=== PATIENT | female | born 1945 | race African-American/Black ===

== ENCOUNTER 2018-04-01 11:44 | Emergency (ER) | payer OTHER ==
[2018-04-01 12:45] LABS: #Eosinphils 0.1 thou/uL (0.0-0.7); #Lymphocytes 1.9 thou/uL (1.20-3.40); #Monocytes 0.6 thou/uL (0.11-0.59); #Neutrophils 3.5 thou/uL (1.40-6.50); %Basophils 0.4 % (0.0-1.0); %Eosinophils 0.9 % (0.0-10.0); %Lymphocytes 31.1 % (21.0-51.0); %Monocytes 9.6 % (0.0-10.0); %Neutrophils 58.1 % (42.0-75.0); Hemoglobin 13.5 g/dL (12.0-16.0); Mean Corpuscular HGB CONC 32.8 g/dL (32.0-36.0); Mean Corpuscular Hemoglobin 30.1 pg (27.0-31.0); Mean Corpuscular Volume 91.8 fl (81.0-99.0); Mean Platelet Volume 6.4 fL (7.4-10.4); Platelet Count 301 thou/uL (130-400); RBC Distribution Width 12.9 % (11.5-14.5); Red Blood Cell (RBC) Count 4.48 mill/uL (4.20-5.40)
[2018-04-01 13:08] LABS: ALT (SGPT) 11 U/L (8-55); AST (SGOT) 22 U/L (5-34); Albumin 4.3 g/dL (3.4-4.8); Alkaline Phosphatase 69 U/L (40-150); Anion Gap 12 mmol/L (10-20); BUN (Urea Nitrogen) 9 mg/dL (9.8-20.1); Bilirubin, Total 0.3 mg/dL (0.2-1.2); CK (CPK) 140 U/L (29-168); Calc. Creatinine Clearance 0 mL/min (70-130); Calcium 9.3 mg/dL (7.8-10.44); Carbon Dioxide 26 mmol/L (23-31); Chloride 105 mmol/L (98-107); Estimated GFR-MDRD Greater than 90; Globulin 3.5 g/dL (2.4-3.5); Glucose 94 mg/dL (83-110); Potassium 3.7 mmol/L (3.5-5.1); Protein, Total 7.8 g/dL (6.0-8.3); Sodium 139 mmol/L (136-145)
[2018-04-01 13:10] LABS: CKMB 0.9 ng/mL (0-6.6); Troponin I Less than 0.010 ng/mL (< 0.028)
--- NOTE | 2018-04-01 14:11 | RAD ---
CHEST 1 VIEW: HISTORY: Syncope. Dyspnea. FINDINGS: Cardiac silhouette is unremarkable. Shallow inspiration accentuates pulmonary markings, upper limits of normal. Mediastinum is midline. No lobar consolidation or evidence of pneumothorax. IMPRESSION: Borderline pulmonary vascular congestion. POS: [facility]
--- NOTE | 2018-04-01 14:17 | CT ---
NONCONTRAST CT HEAD: Date: 04-01-18 History: Patient fell on head after feeling whoozy earlier this morning. Bleeding from scalp. Comparison: None available. FINDINGS: There is left frontal subcutaneous soft tissue swelling. Underlying calvarial structures demonstrate no evidence of a fracture. There is also a suggestion of subcutaneous soft tissue swelling, infraorbi shell regions bilaterally. There is decreased attenuation in the periventricular and subcortical white matter which is nonspecif ic but likely reflective of chronic small vessel ischemic changes. No intraparenchymal or extraaxial hemorrhage is seen. The ventricular system is normal in size, shape, and position. There is minimal mucosal thickening in a few ethmoid air cells. Mastoid air cells are clear. IMPRESSION: 1. No acute intracranial abnormalities demonstrated. 2. Chronic small vessel ischemic changes. 3. Left frontal scalp hematoma with infraorbital subcutaneous soft tissue swelling bilaterally. The o rbits are symmetric and normal in appearance. POS: [facility]
--- NOTE | 2018-04-01 14:20 | CT ---
CT CERVICAL SPINE WITHOUT CONTRAST WITH SAGITTAL AND CORONAL REFORMATIONS: History: Fall, injury, neck pain. FINDINGS/IMPRESSION: There are no previous exams for comparison. There is loss of the cervical lordosis with straightening of the cervical spine. Degenerative changes are present. No acute fracture or subluxation is identified. POS: [facility]
== END 2018-04-01 14:56 | disposition home or self-care (01) ==
LOC: ERS 11:44
DX: S09.90XA Unspecified injury of head, initial encounter (principal); S01.81XA Laceration without foreign body of other part of head, initial encounter; E78.5 Hyperlipidemia, unspecified; I10 Essential (primary) hypertension; F32.9 Major depressive disorder, single episode, unspecified; W19.XXXA Unspecified fall, initial encounter
CPT/HCPCS: 36415; 70450; 71045; 72125; 80053; 82550; 82553; 84484; 85025; 93005; 94760

== ENCOUNTER 2019-05-30 09:34 | Emergency (ER) | payer OTHER ==
[2019-05-30 11:12] LABS: #Lymphocytes 1.1 thou/uL (1.20-3.40); #Monocytes 0.4 thou/uL (0.11-0.59); #Neutrophils 2.7 thou/uL (1.40-6.50); %Basophils 1.1 % (0.0-1.0); %Eosinophils 0.9 % (0.0-10.0); %Lymphocytes 25.1 % (21.0-51.0); %Monocytes 9.5 % (0.0-10.0); %Neutrophils 63.4 % (42.0-75.0); Hemoglobin 13.3 g/dL (12.0-16.0); Mean Corpuscular HGB CONC 32.9 g/dL (32.0-36.0); Mean Corpuscular Hemoglobin 29.9 pg (27.0-31.0); Mean Corpuscular Volume 90.9 fL (78.0-98.0); Mean Platelet Volume 7.5 fL (7.4-10.4); Platelet Count 267 thou/uL (130-400); RBC Distribution Width 13.1 % (11.5-14.5); Red Blood Cell (RBC) Count 4.44 mill/uL (4.20-5.40); White Blood Cell (WBC) Count 4.3 thou/uL (4.8-10.8)
[2019-05-30 11:35] LABS: ALT (SGPT) 13 U/L (8-55); AST (SGOT) 23 U/L (5-34); Albumin 4.2 g/dL (3.4-4.8); Alkaline Phosphatase 55 U/L (40-150); Anion Gap 14 mmol/L (10-20); BUN (Urea Nitrogen) 11 mg/dL (9.8-20.1); Bilirubin, Total 0.5 mg/dL (0.2-1.2); Calc. Creatinine Clearance 0 mL/min (70-130); Calcium 9.4 mg/dL (7.8-10.44); Carbon Dioxide 27 mmol/L (23-31); Chloride 100 mmol/L (98-107); Estimated GFR-MDRD 88; Globulin 3.4 g/dL (2.4-3.5); Glucose 88 mg/dL (83-110); Lipase 21 U/L (8-78); Protein, Total 7.6 g/dL (6.0-8.3); Sodium 138 mmol/L (136-145)
[2019-05-30 11:42] LABS: Potassium 2.7 mmol/L (3.5-5.1)
--- NOTE | 2019-05-30 11:55 | RAD ---
LEFT HAND 3 VIEWS: Date: 05/30/19 HISTORY: Pain and swelling. FINDINGS/IMPRESSION: Mild degenerative change at the first carpometacarpal joint. The metacarpals and phalanges are intact . Mild narrowing at the MCP joints without significant hypertrophic change or erosion. Degenerative changes are prominent at the DIP joints, especially prominent at the second, third, and fourth DIP joints with gull-wing type appearance and deformity. 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 POS: [facility]
[2019-05-30 11:58] LABS: Bilirubin Negative (Negative); Blood, Urine Negative (Negative); Clarity Clear (Clear); Glucose, Urine (Dipstick) Normal (Negative); Leukocyte Negative Leu/uL (Negative); Nitrite Negative (Negative); Protein, Urine (Dipstick) 10 mg/dL (Neg-Trace); Urobilinogen Normal mg/dL (Less than 2)
[2019-05-30] MEDS ORDERED: Potassium Chloride 20 MEQ TAB ONE (12:41)
--- NOTE | 2019-05-30 13:26 | CT ---
CT ABDOMEN AND PELVIS WITH CONTRAST: Date: 05/30/19 COMPARISON: None. HISTORY: Abdominal discomfort and constipation for 1 month. TECHNIQUE: Multiple contiguous axial images were obtained in a CT of the abdomen and pelvis with contrast. PO co ntrast was administered. Coronal reformats were performed. FINDINGS: There is a 1.0 cm cyst in the left kidney. There appears to be a nonobstructing 3 mm calcification in the left kidney. The liver, gallbladder, right kidney, adrenal glands, spleen, and pancreas are unre markable. No free air, free fluid, or stranding changes are seen in the abdomen or pelvis. The reproductive organs are unremarkable. The large and small bowel are unremarkable. No significant stool retention is seen in the colon. No abdominal or pelvic lymphadenopathy are seen. Degenerative changes are seen in the spine. Visualized inferior thorax and abdominal wall soft tissue s are unremarkable. IMPRESSION: 1. No evidence of acute intra-abdominal/pelvic abnormality. 2. Nonobstructing left renal calcification. 3. Left renal cyst. POS: [facility]
[2019-05-30] MEDS ORDERED: ISOVUE-370 76%-LOCM 1 ML ONE (15:47)
[2019-05-30] MEDS ORDERED: Iopamidol 370 76% 50 ML VIAL FS ONE (15:47)
== END 2019-05-30 14:59 | disposition home or self-care (01) ==
LOC: ERS 09:34
DX: K59.00 Constipation, unspecified (principal); E87.6 Hypokalemia; E78.5 Hyperlipidemia, unspecified; I10 Essential (primary) hypertension; F32.9 Major depressive disorder, single episode, unspecified; F60.89 Other specific personality disorders; Z79.82 Long term (current) use of aspirin; Z79.899 Other long term (current) drug therapy
CPT/HCPCS: 36415; 74177; 80053; 81003; 83690; 85025

== ENCOUNTER 2021-03-15 05:57 | Day surgery (SDC) | payer OTHER ==
[2021-03-15] MEDS ORDERED: PROPOFOL 200 MG/20 ML VIAL ONE (08:20)
== END 2021-03-15 09:09 ==
LOC: SDC 05:57
PROVIDERS: ATTEND Internal Medicine
PROC: 0DJ08ZZ Inspection of Upper Intestinal Tract, Via Natural or Artificial Opening Endoscopic (ICD-10-PCS; principal; 2021-03-15)
DX: Z09 Encounter for follow-up examination after completed treatment for conditions other than malignant neoplasm (principal); K31.1 Adult hypertrophic pyloric stenosis; K21.9 Gastro-esophageal reflux disease without esophagitis; E78.00 Pure hypercholesterolemia, unspecified; I10 Essential (primary) hypertension; Z87.11 Personal history of peptic ulcer disease; Z79.82 Long term (current) use of aspirin; Z79.899 Other long term (current) drug therapy; Z88.0 Allergy status to penicillin
CPT/HCPCS: J2704